=== PATIENT | female | born 1945 | race Caucasian/White ===

== ENCOUNTER → 2018-04-09 | Outpatient (CLI) | payer OTHER, BC | LOC: CIMAGING 13:14 | PROVIDERS: ATTEND Family Medicine | DX: S32.501D Unspecified fracture of right pubis, subsequent encounter for fracture with routine healing (principal) | CPT/HCPCS: 72190-PO ==

== ENCOUNTER → 2018-07-19 | Outpatient (CLI) | payer OTHER, BC | LOC: CIMAGING 15:33 | PROVIDERS: ATTEND Family Medicine | DX: J44.9 Chronic obstructive pulmonary disease, unspecified (principal) | CPT/HCPCS: 71046-PO ==